=== PATIENT | male | born 1995 | race Caucasian/White ===

== ENCOUNTER 2016-06-04 17:05 | Emergency (ER) | payer SELFPAY ==
[~2016-06-04] VITALS: Ht 195.6 cm; Wt 97.4 kg
[2016-06-04 17:07] VITALS: BP 136/68; PULSE 79; RESP 16; TEMP 98.2; O2SAT 99
--- OUTSIDE RECORDS SUMMARY | 2016-06-04 17:08 | XMS REPORT | Referral Summary ---
Author Author [facility] Organization [facility] Address Unknown Phone Unavailable Care Team Providers Care Washer Blanket Name Role Phone No PCP, [facility] Primary Care Physician [phone] Encounter [facility] [id number] Date(s): 11/08/15 - 11/08/15 [facility] [address] [place], [place] [address] Discharge Diagnosis: Orthopedic aftercare Discharge Disposition: 01-Home or Self Care Attending Physician: Blane Yoo MD Admitting Physician: Blane Yoo MD Vital Signs No data available for this section Problem List Condition Effective Dates Status Health Status Informant Flexor tenosynovitis Active of finger(Confirmed) Orthopedic Active aftercare(Confirmed) Hand pain(Confirmed) Active patient Obesity(Confirmed) Active patient Allergies, Adverse Reactions, Alerts No Known Allergies Medications ibuprofen 200 mg oral tablet mg tabs, Oral, 0 Refill(s) Start Date: 11/08/15 Status: Ordered Tylenol Caplet mg, Oral, q4hr, 0 Refill(s) Start Date: 11/08/15 Status: Ordered Results No data available for this section Immunizations No data available for this section Procedures Procedure Date Related Diagnosis Body Site Debridement Irrigation Upper Extremity 10/17/15 (Right)1 1auto-populated from documented surgical case Social History Social History Type Response Smoking Status Former smoker; Type: Cigarettes Assessment and Plan Extracted from: Title: Office Visit Note Author: Blane Yoo MD Date: 11/08/15 Assessment/Plan The patient is uninsured and cannot affordto see hand therapy. I recommended thathe work onrange of motion passively aggressively. I gave him exercises to do 10 times a day. I explainedto do 10 reps with each joint DIP, PIP, MP10 timesa day. He will also place on hold for 10 seconds in each joint after he is done 10 reps. The patient will then used thesqueeze ball that was given to him to do to squeeze of the ball. I'll have him see come back in 4 weeks to assess his motion is determined if any need will bemet for[place] reconstruction.
--- OUTSIDE RECORDS SUMMARY | 2016-06-04 17:08 | XMS REPORT | Referral Summary ---
Author Author [facility] Organization [facility] Address Unknown Phone Unavailable Care Team Providers Care Cobol Application Developer Name Role Phone Christi, Oscar Primary Care Physician [phone] Encounter [facility] Date(s): 10/20/15 - 10/20/15 [facility] [address] [place], [place] [address] Discharge Diagnosis: Flexor tenosynovitis of finger Discharge Disposition: -Home or Self Care Attending Physician: Blane Yoo MD Admitting Physician: Blane Yoo MD Vital Signs No data available for this section Problem List Condition Effective Dates Status Health Status Informant Flexor tenosynovitis Active of finger(Confirmed) Hand pain(Confirmed) Active patient Obesity(Confirmed) Active patient Allergies, Adverse Reactions, Alerts No Known Allergies Medications Augmentin 875 mg-125 mg oral tablet 1 tabs, Oral, q12hr, X 10 days, # 20 tabs, 0 Refill(s), other reason (Rx) Start Date: 10/17/15 Stop Date: 10/27/15 Status: Ordered doxycycline hyclate 100 mg oral capsule 100 mg 1 caps, Oral, BID, X 10 days, # 20 caps, 0 Refill(s) Start Date: 10/16/15 Stop Date: 10/26/15 Status: Ordered Percocet 5/325 oral tablet 1-2 tabs, Oral, q4hr, as needed for pain, # 50 tabs, 0 Refill(s) Start Date: 10/20/15 Status: Ordered Results No data available for this section Immunizations No data available for this section Procedures Procedure Date Related Diagnosis Body Site Debridement Irrigation Upper Extremity 10/17/15 (Right)1 1auto-populated from documented surgical case Social History Social History Type Response Smoking Status Former smoker; Type: Cigarettes Assessment and Plan Extracted from: Title: Office Visit Note Author: Blane Yoo MD Date: 10/20/15 Assessment/Plan Ordered: oxyCODONE-acetaminophen, 1-2 tabs, Oral, q4hr, as needed for pain, # 50 tabs, 0 Refill(s) I recommend continued dressing changes twice a day. He'll follow up with me in 2 weeks for suture removal. I explained to him that I would keep the drain openingwithout any antibiotic ointment. Otherwise antibiotic ointment and nonstickAdaptic over thesuture site. Follow-up with me in 2 weeks for examination and suture removal.
--- OUTSIDE RECORDS SUMMARY | 2016-06-04 17:08 | XMS REPORT | Referral Summary ---
Author Author [facility] Organization [facility] Address Unknown Phone Unavailable Care Team Providers Care Creel Hand Name Role Phone Christi Oscar Primary Care Physician [phone] Encounter Date(s): 10/17/15 - 10/17/15 [facility] [address] [place], [place] [address] Discharge Diagnosis: Flexor tenosynovitis of finger Discharge Disposition: -Home or Self Care Attending Physician: Blane Yoo MD Admitting Physician: Blane Yoo MD Vital Signs No data available for this section Problem List Condition Effective Dates Status Health Status Informant Flexor tenosynovitis Active of finger(Confirmed) Hand pain(Confirmed) Active patient Allergies, Adverse Reactions, Alerts No [...] Date: 10/16/15 Stop Date: 10/26/15 Status: Ordered Results No data available for this section Immunizations No data available for this section Procedures Procedure Date Related Diagnosis Body Site Debridement Irrigation Upper Extremity 10/17/15 (Right)1 1auto-populated from documented surgical case Social History Social History Type Response Smoking Status Former smoker; Type: Cigarettes Assessment and Plan Extracted from: Title: Office Visit Note Author: Blane Yoo MD Date: 10/17/15 Assessment/Plan Likely flexor tenosynovitis of the index finger. The patient requires debridement of theflexor tendon sheath. I explained to him the risks of this procedure would be bleeding, infection, damage to nerves or tendons causing numbness or dysfunction of the index finger, need for further surgery. I did explain that the wound will be partially left open andthe drain will be left in place. We'll schedule this for the second being. The patient will likely needovernight stay.
--- OUTSIDE RECORDS SUMMARY | 2016-06-04 17:09 | XMS REPORT | Continuity of Care Document ---
Author [facility]. Address [address] [place] [address] Phone Unavailable Care Team Providers Care Education Program Associate Name Role Phone Unavailable Unavailable Insurance Providers Payer Name Policy Number Subscriber Name Relationship Self-Pay Self-Pay SB SCHAEFFER Self Advance Directives Directive Response Recorded Date/Time Advance Directives: Unknown 08/27/14 10:39pm Chief Complaint and Reason for Visit Reason for Visit Alcoholic intoxication Problems Medical Problems Problem Onset Date Status Alcohol intoxication Unknown Active Medications No Known Medications Information. Social History Query Response Start Date Stop Date Smoking status: Current every day smoker Hospital Discharge Instructions No hospital discharge instructions. Plan of Care Discharge Date 08/28/14 0:35am Disposition HOME, SELF-CARE or ASST LIVING Condition at Discharge Stable Instructions/Education Provided Alcohol Intoxication (ED) Prescriptions See Medications Section Referrals Call office to schedule Ori BLAIR Additional Instructions/Education NO DRIVING FOR 24 HOURS. DO NOT DRINK TO EXCESS. FOLLOW UP WITH YOUR DOCTOR IN 1-2 DAYS Some of your test results may not be complete prior to your leaving the Emergency Department. The Emergency Department is not authorized to give test results over the phone. Please contact the doctor's office listed on form for your final results. Follow up with your primary care physician or return to the Emergency Department for worsening or worrisome symptoms. * Emergency Department phone number: [phone] MEDICAL RECORD If you need copies of your X-rays, call [phone]. If you need copies of your medical record, including lab results, a signed authorization for release of records will be required. A telephone call for release of Health Information is not allowed. BILLING Billing can sometimes be confusing and frustrating. To help avoid confusion in the future, please take a moment to acquaint yourself with the billing parties for services. SERVICE BILLING LIBERTARIAN Emergency Room Services [facility] Physician Services [facility] Resources X-rays [facility] Patients will receive bills for services from the appropriate provider. If have any questions about your [facility] bill, our staff will be happy to assist you. Please call [phone] and ask for the billing department. THANK YOU for choosing [facility] as your emergency care provider. Care Plan and Goals SPDo not drink or drive with taking these medications. Functional Status No functional status results. Allergies, Adverse Reactions, Alerts Allergen Type Severity Reaction Status Last Updated No Known Allergies Allergy Unknown Active 08/27/14 Immunizations Name Date Given Type Hepatitis N Historical Vital Signs Vital Reading Collection Date/Time Result Blood Pressure 08/28/14 0:29am 124/70 Patient Temperature 08/27/14 10:39pm 98.7 Temperature Source 08/27/14 10:39pm T Respiratory Rate 08/28/14 0:29am 14 Pulse Rate 08/28/14 0:29am 63 Bedside Pulse Oximetry 08/28/14 0:29am 99 Height 08/27/14 10:39pm 198.1 cm Height 08/27/14 10:39pm 6 ft 06 in Weight 08/27/14 10:39pm 100.0 kg Weight 08/27/14 10:39pm 220.0 lb Body Mass Index 08/27/14 10:39pm 25.5 Procedures No Known History of Procedures. Results Test Source Date Result Interp. Ref. Range Comments Basophils # 08/27/14 0.0 0.0 - 0.2 Basophils % 08/27/14 0.2 % 0.0 - 2.0 Eosinophils # 08/27/14 0.2 0.0 - 0.7 Eosinophils % 08/27/14 2.7 % 0 - 4.0 Granulocytes # 08/27/14 5.1 1.4 - 6.5 Granulocytes (%) 08/27/14 61.8 % 42.2 - 75.2 Hematocrit 08/27/14 44.2 % 42.0 - 52.0 Hemoglobin 08/27/14 14.8 g/dl 13.5 - 18.0 Lymphocytes # 08/27/14 2.0 1.2 - 3.4 Lymphocytes % 08/27/14 23.8 % 20.0 - 51.0 Mean Corpuscular Hemoglobin 08/27/14 30 pg 27.0 - 31.0 Mean Corpuscular Hemoglobin Concent 08/27/14 34 g/dl 33.0 - 37.0 Mean Corpuscular Volume 08/27/14 89 fl 80.0 - 100.0 Mean Platelet Volume 08/27/14 9.2 fl 7.4 - 10.4 Monocytes # 08/27/14 0.9 H 0.1 - 0.6 Monocytes % 08/27/14 11.3 % H 1.7 - 9.3 Platelet Count 08/27/14 286 K/mm3 130 - 400 Red Blood Count 08/27/14 4.99 M/mm3 4.20 - 5.60 Red Cell Distribution Width 08/27/14 13.3 % 11.5 - 14.5 White Blood Count 08/27/14 8.2 K/mm3 4.8 - 10.8 Alanine Aminotransferase (ALT/SGPT) 08/27/14 21 U/L 21 - 72 Albumin 08/27/14 4.6 gm/dL 3.5 - 5.0 Alkaline Phosphatase 08/27/14 96 U/L 50 - 136 Anion Gap 08/27/14 15 mmol/L 7 - 16 Aspartate Amino Transf (AST/SGOT) 08/27/14 28 U/L 15 - 37 Blood Urea Nitrogen 08/27/14 10 mg/dL 9 - 20 Calcium Adjusted for Albumin 08/27/14 8.5 mg/dL 8.4 - 10.2 Calcium Level 08/27/14 9.0 mg/dL 8.4 - 10.2 Carbon Dioxide Level 08/27/14 26 mmol/L 21 - 32 Chloride Level 08/27/14 103 mmol/L 98 - 107 Creatinine 08/27/14 1.04 mg/dL 0.66 - 1.25 Estimated GFR () 08/27/14 109 - Estimated GFR (Non- 08/27/14 90 - Glucose Level 08/27/14 94 mg/dL 74 - 106 Plasma/Serum Blood Alcohol 08/27/14 197 mg/dL - Potassium Level 08/27/14 4.1 mmol/L 3.4 - 5.0 Serum Total Protein 08/27/14 8.0 gm/dL 6.4 - 8.2 Sodium Level 08/27/14 144 mmol/L 137 - 145 Total Bilirubin 08/27/14 0.3 mg/dL 0.0 - 1.0 Urine Amphetamine Screen 08/27/14 NEGATIVE ng/mL - Urine Barbiturates Screen 08/27/14 NEGATIVE ng/mL - Urine Benzodiazepines, Qualitative 08/27/14 NEGATIVE ng/mL - Urine Buprenorphine Screen 08/27/14 NEGATIVE ng/mL - Urine Cannabinoids Screen 08/27/14 POSITIVE ng/mL H - Urine Cocaine Screen 08/27/14 NEGATIVE ng/mL - Urine Methadone, Qualitative 08/27/14 NEGATIVE ng/mL - Urine Methamphetamines Screen 08/27/14 NEGATIVE ng/mL - Urine Opiates Screen 08/27/14 NEGATIVE ng/mL - Urine Oxycodone Screen 08/27/14 NEGATIVE ng/mL - Urine Phencyclidine Screen 08/27/14 NEGATIVE ng/mL - Urine Propoxyphene Screen 08/27/14 NEGATIVE ng/mL - Urine Tricyclic Antidepressants 08/27/14 NEGATIVE ng/mL - Encounters Encounter Location Date/Time Departed Emergency [facility] 08/28/14 0:35am Registered Clinical [facility] 08/27/14 10:02pm Recent Diagnosis Alcoholic intoxication
--- OUTSIDE RECORDS SUMMARY | 2016-06-04 17:09 | XMS REPORT | Referral Summary ---
Author Author [facility] Organization [facility] Address Unknown Phone Unavailable Care Team Providers Care Middleware Solutions Architect Name Role Phone Oscar Barraza Primary Care Physician [phone] Encounter [facility] Date(s): 10/16/15 - 10/16/15 [facility] [address] [place] [address] [phone] Discharge Diagnosis: Injury of tendon of right hand Discharge Diagnosis: Laceration of finger with infection Discharge Disposition: 01-Home or Self Care Attending Physician: Demetrius Long MD Admitting Physician: Demetrius Long MD Vital Signs Most recent to 1 oldest [Reference Range]: Temperature Oral 37.2 degC [35.8-37.3 degC] (10/16/15 11:29 PM) Peripheral Pulse 63 bpm Rate [60-100 bpm] (10/16/15 11:29 PM) Heart Rate Monitored 63 bpm [60-100 bpm] (10/16/15 11:23 PM) Respiratory Rate 16 br/min [14-20 br/min] (10/16/15 11:29 PM) Blood Pressure 120/54 mmHg [90-140/60-90 mmHg] (10/16/15 11:29 PM) Problem List Condition Effective Dates Status Health Status Informant Hand pain(Confirmed) Active patient Allergies, Adverse Reactions, Alerts No Known Allergies Medications doxycycline hyclate 100 mg oral capsule 100 mg 1 caps, Oral, BID, X 10 days, # 20 caps, 0 Refill(s) Start Date: 10/16/15 Stop Date: 10/26/15 Status: Ordered Percocet 7.5/325 oral tablet 1 tabs, Oral, q6hr, # 6 tabs, 0 Refill(s) Start Date: 10/16/15 Stop Date: 10/17/15 Status: Ordered Results Hematology Most recent to 1 oldest [Reference Range]: WBC [4.8-10.8 10.4 10*3/uL 10*3/uL] (10/16/15 6:43 PM) RBC [4.60-6.20] 4.92 (10/16/15 6:43 PM) Hgb [14.0-18.0 14.5 gm/dL gm/dL] (10/16/15 6:43 PM) Hct [42.0-52.0 %] 42.8 % (10/16/15 6:43 PM) MCV [82.0-99.0 fL] 87.0 fL (10/16/15 6:43 PM) MCH [27.0-32.0 pg] 29.5 pg (10/16/15 6:43 PM) MCHC [32.0-36.0 33.9 gm/dL gm/dL] (10/16/15 6:43 PM) RDW [11.5-14.5 %] 13.0 % (10/16/15 6:43 PM) Platelet [150-400 274 10*3/uL 10*3/uL] (10/16/15 6:43 PM) MPV [9.4-12.3 fL] 10.0 fL (10/16/15 6:43 PM) Immature 0.1 % Granulocytes (10/16/15 6:43 PM) [0.0-1.0 %] Neutrophils [51-75 66 % %] (10/16/15 6:43 PM) Lymphocytes [20-46 21 % %] (10/16/15 6:43 PM) Monocytes [4-11 %] 9 % (10/16/15 6:43 PM) Eosinophils [0-4 %] 3 % (10/16/15 6:43 PM) Basophils [0-2 %] 0 % (10/16/15 6:43 PM) Neutro Absolute 6.95 10*3 [1.90-7.00 10*3] (10/16/15 6:43 PM) Lymph Absolute 2.17 10*3 [0.80-3.30 10*3] (10/16/15 6:43 PM) Falls Absolute 0.96 10*3 [0.30-1.00 10*3] (10/16/15 6:43 PM) Eos Absolute 0.33 10*3 [0.00-0.50 10*3] (10/16/15 6:43 PM) Baso Absolute 0.03 10*3 [0.00-0.20 10*3] (10/16/15 6:43 PM) Sed Rate [0-15] 9 (10/16/15 6:43 PM) Immunizations No data available for this section Procedures No data available for this section Social History Social History Type Response Smoking Status Current every day smoker; Type: Cigarettes Assessment and Plan No data available for this section
--- OUTSIDE RECORDS SUMMARY | 2016-06-04 17:09 | XMS REPORT | Continuity of Care Document ---
Author Author [facility] Organization [facility]. Address Unknown Phone Unavailable Allergies Active Description Code Type Severity Reaction Onset Reported/Identified Relationship to Patient Clinical Status Yes banana banana Drug Allergy Unknown unknown 08/23/2012 Yes peanut peanut Drug Allergy Unknown unknown 08/23/2012 Yes No Known Allergies NKA Miscellaneous Allergy Unknown N/A 08/27/2014 Yes Banana banana Drug Allergy Unknown unknown 11/20/2014 Yes peanut peanut Drug Allergy Unknown unknown 11/20/2014 Medications Problems Date Dx Coded Attending Type Code Diagnosis Diagnosed By 08/28/2014 CRISTOBAL LOVING 303.00 08/28/2014 CRISTOBAL LOVING 780.09 08/28/2014 CRISTOBAL LOVING E849.9 08/28/2014 CRISTOBAL LOVING E860.0 Procedures Results Test Result Range CBC - 11/21/13 06:47 MEAN CELL HGB 29.3 pg 27.0-33.0 MEAN CELL HGB CONCENTRATION 33.8 g/dL 32.0-37.0 MEAN CELL VOLUME 86.7 fl 80.0-100.0 RED BLOOD CELL 5.05 m/cumm 4.00-6.00 RED CELL DISTRIBUTION WIDTH 14.1 % 11.0- 15.6 WHITE BLOOD CELL 8.8 k/cumm 5.0-10.0 HEMOGLOBIN 14.8 gm/dL 14.0-18.0 HEMATOCRIT 43.8 % 40.0-54.0 PLATELET COUNT 257 k/cumm 150-400 ALCOHOL (ETHANOL) SERUM - 11/21/13 06:47 ALCOHOL (ETHANOL) SERUM 164 mg/dL < 10 CBC W/DIFF - 11/20/14 03:22 EOSINOPHIL # 0.3 k/cumm 0.1-0.5 EOSINOPHIL % 3 % 2-4 GRANULOCYTE # 5.4 k/cumm 2.0-9.0 GRANULOCYTE % 56 % 50-75 LYMPHOCYTE # 3.3 k/cumm 1.0-4.0 LYMPHOCYTE % 35 % 20-30 MEAN CELL HGB 29.1 pg 27.0-33.0 MEAN CELL HGB CONCENTRATION 33.2 g/dL 32.0-37.0 MEAN CELL VOLUME 87.6 fl 80.0-100.0 MONOCYTE # 0.6 k/cumm 0.1-1.0 MONOCYTE % 6 % 4-6 RED BLOOD CELL 5.50 m/cumm 4.00-6.00 RED CELL DISTRIBUTION WIDTH 13.6 % 11.0- 15.6 WHITE BLOOD CELL 9.6 k/cumm 5.0-10.0 HEMOGLOBIN 16.0 gm/dL 14.0-18.0 HEMATOCRIT 48.2 % 40.0-54.0 PLATELET COUNT 281 k/cumm 150-400 Microbiology ALCOHOL (ETHANOL) SERUM - 11/20/14 03:22 ALCOHOL (ETHANOL) SERUM 272 mg/dL < 10 Microbiology CHEM/HEM PROFILE-BEDSIDE - 11/20/14 03:29 POTASSIUM 3.8 mmol/L 3.5-5.3 METHOD Bedside ANION GAP 21 mmol/L 10-20 METHOD Bedside GLUCOSE 86 mg/dL 70-99 BLOOD UREA NITROGEN 14 mg/dL 7-20 CREATININE 1.7 mg/dL 0.7-1.3 HEMOGLOBIN 17.3 gm/dL 14.0-18.0 HEMATOCRIT 51.0 % 40.0-54.0 SODIUM 144 mmol/L 135-148 CHLORIDE 103 mmol/L 98-110 CARBON DIOXIDE 24 mmol/L 21-32 CALCIUM IONIZED 4.5 mg/dL 4.5-5.3 Microbiology Encounters ACCT No. Visit Date/Time Discharge Status Pt. Type Provider Facility Loc./Unit Complaint [id number] 08/27/2014 22:36:00 2014 00:35:00 DIS Emergency CRISTOBAL LOVING [facility]. [facility]
--- OUTSIDE RECORDS SUMMARY | 2016-06-04 17:09 | XMS REPORT | Referral Summary ---
Author Author [facility] Organization [facility] Address Unknown Phone Unavailable Care Team Providers Care Shoe Lacer Name Role Phone Oscar Barraza Primary Care Physician [phone] Encounter Date(s): 10/18/15 - 10/18/15 [facility] [address] [place], [place] [address] Discharge Disposition: 01-Home or Self Care Attending [...] Cigarettes Assessment and Plan Extracted from: Title: Cast room visit Author: Christine Brown MA Date: 10/18/15 Patient arrived on cast room schedule for a dressing change, status post drainage of hand infection yesterday. Bactitracin applied to incision of index finger, adaptic/sterile 4x4 guaze/kerlix applied to hand/index fiinger. [place] drain staying in place under dressing. Pt experienced elevated pain and sweating during dressing placement. Pt was placed in supine position during the dressing placement and given some water. Pt was ambulatory upon leaving the facility. Pt to return this Thursday 10/19 for removal of drain. Pt is aware of appt.
--- OUTSIDE RECORDS SUMMARY | 2016-06-04 17:09 | XMS REPORT | Referral Summary ---
Author Author [facility] Organization [facility] Address Unknown Phone Unavailable Care Team Providers Care Mathematics Education Professor Name Role Phone Oscar Barraza Primary Care Physician [phone] Encounter VC Date(s): 10/17/15 - 10/17/15 [facility] [address] [place] [address] Discharge Diagnosis: Flexor tenosynovitis of finger Discharge Disposition: 01-Home or Self Care Attending Physician: Blane Yoo MD Admitting Physician: Blane Yoo MD Vital Signs Most recent to 1 oldest [Reference Range]: Temperature Skin 36.3 degC [36-37 degC] (10/17/15 3:53 PM) Temperature Temporal 35.9 degC Artery [36.3-37.8 *LOW* degC] (10/17/15 7:10 PM) Peripheral Pulse 56 bpm Rate [60-100 bpm] *LOW* (10/17/15 8:00 PM) Heart Rate Monitored 53 bpm [60-100 bpm] *LOW* (10/17/15 7:00 PM) Respiratory Rate 17 br/min [14-20 br/min] (10/17/15 8:00 PM) Blood Pressure 100/54 mmHg [90-140/60-90 mmHg] (10/17/15 8:00 PM) Mean Arterial 76 mmHg Pressure, Cuff (10/17/15 7:00 PM) SpO2 96 % (10/17/15 8:00 PM) Problem List Condition Effective Dates Status [...] 10/16/15 Stop Date: 10/26/15 Status: Ordered Results Chemistry Most recent to 1 oldest [Reference Range]: Blood Glucose, 105 mg/dL Capillary [70-100 *HI* mg/dL] (10/17/15 12:51 PM) Microbiology Reports TEST: Wound Culture and Smear STATUS: Order in Progress BODY SITE: SOURCE: Surgical-Wound COLLECTED DATE/TIME: 10/17/15 5:50 PM Gram Smear Rare (0-1/OIF) white blood cells Rare (0-1/OIF) squamous epithelial cells Rare (0-1/OIF) gram positive cocci OIF=Oil Immersion Field LPF=Low Power Field Immunizations No data available for this section Procedures Procedure Date Related Diagnosis Body Site Debridement Irrigation Upper Extremity 10/17/15 (Right)1 1auto-populated from documented surgical case Social History Social History Type Response Smoking Status Former smoker; Type: Cigarettes Assessment and Plan No data available for this section
[2016-06-04 17:13] VITALS: Ht 195.6 cm; Wt 97.4 kg
[2016-06-04] MEDS ORDERED: ACET-62 PO (17:17)
--- NOTE | 2016-06-04 17:17 | NUR ---
DR GOMEZ IN
--- OUTSIDE RECORDS SUMMARY | 2016-06-04 17:25 | XMS REPORT | Continuity of Care Document ---
Author Author [facility] [facility] Organization [facility]. Address Unknown Phone Unavailable Allergies Active [...] Status Pt. Type Provider Facility Loc./Unit Complaint [id number] 08/27/2014 22:36:00 2014 00:35:00 DIS Emergency CRISTOBAL LOVING [facility]. [facility]
--- NOTE | 2016-06-04 17:29 | ERPDOC ---
Departure Disposition Decision Date: Jun 04, 2016 Disposition Decision Time: 17:25 Disposition: 01 DISCHARGED HOME, SELF-CARE Impression Impression Impression: Primary Impression: Pain, dental Severity: Mild Condition: Improved Seen By: Physician only Referrals: Your Doctor or Dentist Patient Instructions: Toothache (ED) Problems/Meds/Labs Reviewed?: Yes Medications reviewed and manag: Yes Follow up care ordered?: Yes Mental Status: Alert, Oriented Scripts Hydrocodone/Acetaminophen ([place] 5-325 Tablet) 5-325 Tablet 1 TAB PO Q4-6HPRN for pain, #10 TAB 0 Refills Prov: ZENA GOMEZ DO 06/04/16 Naproxen (Naprosyn) 500 Mg Tablet 1 TAB PO BID Y for PAIN for 10 Days, #20 TAB 0 Refills Prov: ZENA GOMEZ DO 06/04/16 Amoxicillin (Amoxicillin) 500 Mg Capsule 1 CAP PO Q8H for dental pain for 10 Days, #30 CAP 0 Refills Prov: ZENA GOMEZ DO 06/04/16 HPI General Chief Complaint: Toothache Stated Complaint: TOOTH PAIN Time Seen by Provider: 17:07 Source: patient (Patient presents to the ER with Dental pain. Patient complains of pain to approx tooth number 30. No obvious abscess is noted. ) Exam Limitations: no limitations HPI Dental Occurred At: home Onset: Changing over time Duration: other Pain Scale: Now & Worst: 6/10 Severity: mild Location: R lower Problem: other Associated Symptoms: gum swelling (mild), other, DENIES: cheek swelling, cough , dental trauma, diarrhea, drooling, dyspnea, facial swelling, fever, fractured tooth, gum laceration, headache, high pitched cry/voice, hoarseness, impacted tooth, loose tooth, nausea, retained foreign body, rhinorrhea, sinus drainage, sinus pain, trouble chewing, trouble swallowing, vomiting Allergies: Coded Allergies: No Known Allergies (Unverified , 06/04/16) Past History Past Medical History Pt denies signifigant PMH Hx Echocardiogram: No Surgical History Denies Surgeries Family History Family History: Negative Social History Smoking Status: Unknown if ever smoked Does patient use chewing tobac: No Second Hand Exposure: No Substance Use Type: does not use Alcohol Intake: none Marital Status: Single Sexuality: female partner Housing: house Household Members: significant other Service: No Occupational Hazard: No Advance Directives: Yes Full Code Record Review Pertinent history updated: Yes Review of Systems Constitutional Constitutional: DENIES: chills, fever Eyes Lids/Accessories: DENIES: erythema, swelling ENMT Ears: DENIES: erythema, pain Balance: DENIES: ataxia, vertigo Sinuses: DENIES: congestion, rhinorrhea Mouth/Throat: DENIES: sore throat Cardiovascular Cardiac: DENIES: chest pain, dyspnea on exertion, orthopnea Rhythm/Rate: DENIES: tachycardia Pulmonary Respiratory: DENIES: cough, dyspnea, sputum GI Upper Abdomen: DENIES: nausea, pain, vomiting Lower Abdomen: DENIES: constipation, diarrhea, pain General: DENIES: dysuria Musculoskeletal General: DENIES: cramps, pain, weakness Integumentary Skin: DENIES: color change, itching, rash Neurological General: DENIES: ataxia, change in strength, headache, numbness, poor coordination, seizures, syncope, vertigo, weakness Psychiatric Psychiatric: DENIES: anxiety, depression, nervousness Hematologic/Lymphatic Hematologic/Lymphatic: DENIES: anemia Allergic/Immunological Allergic/Immunoligical: DENIES: sneezing All other Systems All Other Systems: Reviewed and Negative Exam General General Nourishment: well nourished, well developed, appears stated age, adult , thin General Body Habitus: well groomed Vital Signs: RN Vital Signs have been reviewed: Yes, Temperature: 98.2, Source : Oral, Heart Rate: 79, Respiratory Rate: 16, BP: 136/68, Pulse Oximetry: 99 Height (Feet): 6 Height (Inches): 5.00 [place] Dental Face: NOT FOUND: asymmetry, bruising, erythema, numbness, swelling, tender, weakness Jaw: NOT FOUND: asymmetry, trismus Glands: R submandibular swollen, NOT FOUND: L parotid swollen, L submandibular swollen, R parotid swollen Ducts: NOT FOUND: L Stensen's blocked, L [place]ensen's inflamed, L [place]'s blocked, L [place]'s inflamed, R [place]ensen's blocked, R [place]ensen's inflamed, R [place]'s blocked, R Mary's inflamed Lips: NOT FOUDN: laceration, numbness, swelling, weakness Gums: moist, pink, swelling (mild), NOT FOUND: exudate, lesion, ulcers Tongue: NOT FOUND: geographic, strawberry, swelling, ulcers Teeth: caries, NOT FOUND: crowns, dentures, fractures, implants, missing Pharynx: NOT FOUND: cobblestoning, erythema, exudate, lateral pillar signs, swelling, uvular deviation Tonsils: NOT FOUND: erythema, exudate Neck: NOT FOUND: L anterior adenopathy, L posterior adenopathy, R anterior adenopathy, R posterior adenopathy Skin: NOT FOUND: ecchymosis, rash Eyes (brief) Eyes Brief: found: EOMI, PERRL ENMT (brief) ENMT: FOUND: TM clear, TM good light reflex, mucosa moist, normal tonsils, NOT FOUND: pharnyx erythema, tonsillar deviation Neck (brief) Neck Brief: FOUND: trachea midline, NOT FOUND: adenopathy, tenderness, tracheal deviation Respiratory (brief) Respiratory Brief: FOUND: clear all barrera, equal bilaterally Cardiovascular (brief) Cardiac Brief: FOUND: regular rate, regular rhythm Capillary Refill: <2 sec, >2 sec, other Abdomen (brief) Abdominal Brief: FOUND: bowel normo active x4, soft, tender, NOT FOUND: distended Musculoskeletal (brief) Musculoskeletal Brief: NOT FOUND: spasm, tenderness Integumentary (brief) Integumentary Brief: FOUND: pink, warm Neurologic (brief) Neurological Brief: FOUND: CN w/o gross def to obs, gait w/o gross def to obs, motor-no gross deficits, sensory-no gross deficits, NOT FOUND: ataxia Neurologic RN Documented GCS Eye Opening: Verbal: Motor: Total: Psychiatric (brief) Psychiatric Brief: FOUND: alert, attentive, normal affect, oriented Differential Diagnoses Considering: Gingival Abscess, Caries, Lost Filling, Sinusitis, Tooth Fracture , Other Progress Results/Orders Orders Procedure Category Date Status Time Ketorolac (Toradol) PHA 06/04/16 Complete 17:30 Medications Current ED Medications Ketorolac Tromethamine (Toradol) 60 mg O ONCE IM Last administered on t 17:40; Start 06/04/16 at 17:30; Stop 06/04/16 at 17:31; Status DC Progress Progress Patient is feeling better following medications ZENA GOMEZ DO Jun 04, 2016 17:29
[2016-06-04] MEDS ORDERED: KETOROLAC 60mg/2ml INJECTION IM ONE (17:30)
[2016-06-04] MEDS ORDERED: AMOX500C2 PO (17:31)
[2016-06-04] MEDS ORDERED: HYDR-4246 PO (17:31)
[2016-06-04] MEDS ORDERED: NAPR500T PO (17:31)
--- NOTE | 2016-06-04 17:47 | NUR ---
DISMISSAL INSTRUCTIONS & RX REVIEWED WITH PT. DISCHARGED AMB
== END 2016-06-04 17:47 | disposition home or self-care (01) ==
LOC: ED 17:05
DX: K08.89 Other specified disorders of teeth and supporting structures (principal)
CPT/HCPCS: 96372